=== PATIENT | female | born 1955 | race Caucasian/White ===

== ENCOUNTER 2019-07-08 13:49 | Outpatient (CLI) | payer OTHER, SELFPAY ==
--- NOTE | ~2019-07-08 | DEXA_ITS ---
Bone Density Report Name: Jennifer Mg Age: 64 Sex: Female Ethnicity: White Date of : 1955 Indication: postmenopausal; prior fracture; cancer; Referring Provider: Cristin, Zohaib Call Study: Bone densitometry was performed. Exam Date: July 08, 2019 Accession number: [id number] Bone Density: Region BMD T-score Z-score Classification AP Spine (L1, L2) 1.008 0.3 1.7 Normal Femoral Neck (Left) 0.696 -1.4 0.0 Osteopenia Total Hip (Left) 0.827 -0.9 0.1 Normal Total Hip Bilateral Avg 0.831 -0.9 0.2 Normal Femoral Neck (Right) 0.708 -1.3 0.1 Osteopenia Total Hip (Right) 0.834 -0.9 0.2 Normal World Health Organization criteria for BMD impression classify patients as: Normal (T-score at or above -1.0), Osteopenia (T-score between -1.0 and -2.5), or Osteoporosis (T-score at or below -2.5). 10-year Fracture Risk(1): Major Osteoporotic Fracture 14% Hip Fracture 1.2% Reported Risk Factors: [place] (), Neck BMD=0.696, BMI=23.4, previous fracture (1) FRAX(R) Version 3.08. Fracture probability calculated for an untreated patient. Fracture probability may be lower if the patient has received treatment. Previous Exams: Region Exam Age BMD T-score BMD Change BMD Change Date g/cm2 vs Baseline vs Previous AP Spine(L1, L2) 07/08/2019 64 1.008 0.3 -0.133(-11.6%) -0.133(-11.6%) 06/06/2015 60 1.140 1.5 Total Hip(Left) 07/08/2019 64 0.827 -0.9 -0.191(-18.8%) -0.191(-18.8%) 06/06/2015 60 1.019 0.6 Total Hip(Right) 07/08/2019 64 0.834 -0.9 -0.164(-16.4%) -0.164(-16.4%) 06/06/2015 60 0.997 0.5 *Denotes significance at 95% confidence level, LSC for AP Spine = 0.022 g/cm2, LSC for Total Hip = 0.027 g/cm2 Clinical Information Provided by Patient: Has had a low trauma fracture Has used the following medications: Vitamin D Has the following medical conditions: Cancer Patient maximum height was 60 Menopause Age: 52 No regular weight bearing exercise Onset of menses at age 16 Number of children 1 Impression: The patient has low bone mass, based on the Left Femoral Neck T-score. The patient has an estimated ten-year risk of hip fracture of 1.2% and an estimated ten-year risk of major fracture of 14%, based on the WHO FRAX algorithm. The patient has risk factors, including: previous fracture. The BMD for the AP Spine(L1, L2) decreased, changing by -11.6% since the last DXA exam. The BMD for the Total Hip(Left) decreased, changing b
--- NOTE | ~2019-07-08 | MM_ITS ---
EXAMINATION: MM screening jeremiah BI w nohemy HISTORY: Screening mammogram TECHNIQUE: Craniocaudal and mediolateral oblique 3-D tomosynthesis images were obtained and synthetic 2-D images were generated. CAD analysis was submitted and interpreted. COMPARISON: Comparison to multiple prior studies sequentially, with oldest reviewed study dated 04/2014. BREAST PARENCHYMAL COMPOSITION: The breasts are heterogeneously dense, which may obscure small masses . FINDINGS: There are surgical changes in the right breast consistent with previous lumpectomy. There a re benign bilateral vascular calcifications. There is no evidence of suspicious mass, calcification, or architectural distortion to suggest malignancy in either breast. There has been no suspicious inte rval change. IMPRESSION: 1. No mammographic evidence of malignancy. 2. Recommend routine screening mammography in one year. BI-RADS Category 2: Benign finding(s). Reviewed, dictated and finalized at location D.
== END 2019-07-08 13:50 | disposition home or self-care (01) ==
LOC: ANHIMG 13:52
PROVIDERS: Family Provider Obstetrics & Gynecology; PCP Family Medicine; Visit Provider Family Medicine
DX: M89.9 Disorder of bone, unspecified (principal); Z85.3 Personal history of malignant neoplasm of breast; Z78.0 Asymptomatic menopausal state; M85.852 Other specified disorders of bone density and structure, left thigh; M85.851 Other specified disorders of bone density and structure, right thigh
CPT/HCPCS: 77063; 77067; 77080

== ENCOUNTER 2019-10-07 11:36 | Outpatient (CLI) | payer OTHER, SELFPAY ==
[2019-10-07 12:23] LABS: Alanine Aminotransferase 23 U/L (4-35); Albumin Level 4.4 g/dL (3.5-5.1); Alkaline Phosphatase 132 U/L (38-126); Aspartate Amino Transferase 20 U/L (14-36); Bilirubin,Total 0.2 mg/dL (0.2-1.3); Blood Urea Nitrogen 53 mg/dL (7-17); Calcium 9.5 mg/dL (8.4-10.2); Carbon Dioxide 23 mmol/L (22-30); Chloride 94 mmol/L (98-107); Estimated Glomerular Filt Rate 42; Glucose 194 mg/dL (65-105); Potassium 5.9 mmol/L (3.4-5.0); Sodium 129 mmol/L (137-145)
[2019-10-07 13:27] LABS: Free T4 Free Thyroxine 0.78 ng/mL (0.78-2.19)
== END 2019-10-07 11:37 | disposition home or self-care (01) ==
PROVIDERS: PCP Family Medicine; Visit Provider Family Medicine
DX: E03.9 Hypothyroidism, unspecified (principal); E11.9 Type 2 diabetes mellitus without complications
CPT/HCPCS: 36415; 80053; 83036; 84439; 84443

== ENCOUNTER 2019-10-26 10:40 | Outpatient (CLI) | payer OTHER, SELFPAY ==
[2019-10-26 11:17] LABS: Blood Urea Nitrogen 37 mg/dL (7-17); Calcium 8.9 mg/dL (8.4-10.2); Carbon Dioxide 29 mmol/L (22-30); Chloride 97 mmol/L (98-107); Estimated Glomerular Filt Rate 56; Glucose 203 mg/dL (65-105); Potassium 4.3 mmol/L (3.4-5.0); Sodium 132 mmol/L (137-145)
== END 2019-10-26 10:41 | disposition home or self-care (01) ==
PROVIDERS: PCP Family Medicine
DX: E87.5 Hyperkalemia (principal)
CPT/HCPCS: 36415; 80048

== ENCOUNTER 2019-11-05 10:23 | Outpatient (CLI) | payer OTHER, SELFPAY ==
[2019-11-05 11:30] LABS: Blood Urea Nitrogen 53 mg/dL (7-17); Calcium 9.8 mg/dL (8.4-10.2); Carbon Dioxide 26 mmol/L (22-30); Chloride 95 mmol/L (98-107); Estimated Glomerular Filt Rate 42; Glucose 155 mg/dL (65-105); Potassium 5.2 mmol/L (3.4-5.0); Sodium 131 mmol/L (137-145)
== END 2019-11-05 10:24 | disposition home or self-care (01) ==
PROVIDERS: PCP Family Medicine
DX: K70.30 Alcoholic cirrhosis of liver without ascites (principal)
CPT/HCPCS: 36415; 80048

== ENCOUNTER 2019-11-20 12:14 | Outpatient (CLI) | payer OTHER, SELFPAY ==
[2019-11-20 12:50] LABS: Anion Gap 16.6 mmol/L (7-16); Blood Urea Nitrogen 52 mg/dL (7-17); Calcium 9.9 mg/dL (8.4-10.2); Carbon Dioxide 29 mmol/L (22-30); Chloride 90 mmol/L (98-107); Estimated Glomerular Filt Rate 42; Glucose 149 mg/dL (65-105); Potassium 5.6 mmol/L (3.4-5.0); Sodium 130 mmol/L (137-145)
== END 2019-11-20 12:15 | disposition home or self-care (01) ==
PROVIDERS: PCP Family Medicine
DX: E87.5 Hyperkalemia (principal)
CPT/HCPCS: 36415; 80048

== ENCOUNTER 2019-12-11 12:37 | Outpatient (CLI) | payer OTHER, SELFPAY ==
[2019-12-11 13:18] LABS: Anion Gap 7 mmol/L (8-16); Blood Urea Nitrogen 21 mg/dL (7-17); Calcium 9.2 mg/dL (8.4-10.2); Carbon Dioxide 26 mmol/L (22-30); Chloride 102 mmol/L (98-107); Estimated Glomerular Filt Rate 56; Glucose 114 mg/dL (65-105); Potassium 4.7 mmol/L (3.4-5.0); Sodium 135 mmol/L (137-145)
== END 2019-12-11 12:38 | disposition home or self-care (01) ==
PROVIDERS: PCP Family Medicine; Visit Provider Internal Medicine Gastroenterology
DX: E87.5 Hyperkalemia (principal)
CPT/HCPCS: 36415; 80048

== ENCOUNTER 2019-12-27 17:54 | Emergency (ER) | payer OTHER, SELFPAY ==
--- NOTE | 2019-12-27 18:00 | ED.ALLEREA ---
HPI - Allergic Reaction General Chief complaint: Ear Stated complaint: ear pain Time Seen by Provider: 12/27/19 18:15 Source: patient Mode of arrival: ambulatory Limitations: no limitations History of Present Illness HPI narrative: Jennifer Mg is a 64 yo female with with a PMH of diabetes difficulty sleeping, GERD, arthritis, chronic silent sinus problems who comes with left ear pain, and increased thickness and yellowing of her nasal secretions. She has been using a nasal rinse to try and control symptoms with ear pain is continually gotten worse and the sinus mucus is thick. Left ear pain x3 days Related Data Home Medications Medication Instructions Recorded Confirmed alprazolam 0.5 mg TID PRN 03/17/19 12/27/19 anastrozole [Arimidex] 1 mg PO DAILY 03/17/19 12/27/19 montelukast 10 mg DAILY 03/17/19 12/27/19 sucralfate 100 mg DAILY 03/17/19 12/27/19 tramadol 50 mg PO TID PRN 03/17/19 12/27/19 alendronate 70 mg PO DAILY 12/27/19 12/27/19 canagliflozin [Invokana] 1 mg DAILY 12/27/19 12/27/19 cyclobenzaprine 5 mg TID PRN 12/27/19 12/27/19 meloxicam 15 mg DAILY 12/27/19 12/27/19 ondansetron 4 mg TID PRN 12/27/19 12/27/19 zolpidem 5 mg HS 12/27/19 12/27/19 Allergies Allergy/AdvReac Type Severity Reaction Status Date / Time Nitrate Analogues Allergy Intermediate NITRATES Verified 12/27/19 18:13 morphine Allergy Unknown Other Verified 12/27/19 18:13 simvastatin Allergy Unknown myalgias Verified 12/27/19 18:13 (muscle pain) Sulfa (Sulfonamide Allergy Unknown Rash Verified 12/27/19 18:13 Antibiotics) Review of Systems Review of Systems: Narrative: CONSTITUTIONAL: Denies fever, chills, sweats. EYES: Denies visual changes, redness, discharge. ENT: Denies rhinorrhea, congestion, sore throat, left otalgia. With increased nasal secretions CARDIOVASCULAR: Denies chest pain, palpitations, edema. RESPIRATORY: Denies dyspnea, wheezing, cough GASTROINTESTINAL: Denies abdominal pain, nausea, vomiting, diarrhea. GENITOURINARY: Denies dysuria, hematuria, abnormal discharge SKIN: Denies rash or itching. NEUROLOGIC: Denies numbness, or focal weakness. PSYCHIATRIC: Denies anxiety or depression. REPLACED BY [facility] Past Medical History Medical History Arthritis Diabetes GERD (gastroesophageal reflux disease) Sleep disturbance Family History Family History Other Diabetes mellitus Social History Social History (Updated 12/27/19 @ 18:29 by Pamela Bah CNP) Smoking status: Never smoker Alcohol intake: never Gender identity (if verbalized by the patient): Female Comments At time of signature, I agree with nursing past medical, surgical, social and family history. There is no relevant family history pertinent to the presenting complaint. Exam Narrative: Exam Narrative: GENERAL: This is a well-nourished, well-developed patient, in mild distress. HEAD: normocephalic, atraumatic. EYES: Sclera clear/white. Vision is grossly intact. EARS: External ears normal, auditory canals clear , left canal erythema with mild edema, without drainage, TMs normal without perforation. Hearing grossly intact. NOSE: External nose normal without nasal discharge, nares with redness, no rhinorrhea. THROAT: Mucous membranes moist, posterior pharynx erythema NECK: Neck supple, non-tender CARDIOVASCULAR: Regular rate and rhythm without murmurs, gallops, or rubs. RESPIRATORY: Clear to auscultation. Breath sounds equal bilaterally. No wheezes, rales, or rhonchi. GASTROINTESTINAL: Abdomen soft, non-tender, SKIN: warm, intact with no suspicious lesions or rash, good texture and turgor. NEURO: awake, alert, and oriented to person, place and time. There were no obvious focal neurologic abnormalities. Steady gait EXTREMITIES: Normal range of motion. BACK: Nontender without deformity Course Course Emergency Course: Started on Z-Adal
[2019-12-27 18:17] VITALS: BP 149/82; PULSE 90; RESP 18; TEMP 37.2; O2SAT 100
== END 2019-12-27 18:42 | disposition home or self-care (01) ==
PROVIDERS: Emergency Provider Nurse Practitioner; PCP Family Medicine
DX: H66.002 Acute suppurative otitis media without spontaneous rupture of ear drum, left ear (principal); J32.1 Chronic frontal sinusitis; M19.90 Unspecified osteoarthritis, unspecified site; E11.9 Type 2 diabetes mellitus without complications; K21.9 Gastro-esophageal reflux disease without esophagitis
CPT/HCPCS: 99213; G0463

== ENCOUNTER 2020-01-25 15:58 | Outpatient (CLI) | payer OTHER, SELFPAY ==
[2020-01-25 16:44] LABS: Alanine Aminotransferase 28 U/L (4-35); Albumin Level 4.5 g/dL (3.5-5.1); Alkaline Phosphatase 188 U/L (38-126); Anion Gap 10 mmol/L (8-16); Aspartate Amino Transferase 23 U/L (14-36); Bilirubin,Total 0.4 mg/dL (0.2-1.3); Blood Urea Nitrogen 42 mg/dL (7-17); Calcium 10.1 mg/dL (8.4-10.2); Carbon Dioxide 31 mmol/L (22-30); Chloride 89 mmol/L (98-107); Estimated Glomerular Filt Rate 38; Glucose 321 mg/dL (65-105); Potassium 4.9 mmol/L (3.4-5.0); Sodium 130 mmol/L (137-145)
[2020-01-25 17:06] LABS: Hemoglobin A1C 8.3 % (<5.7)
== END 2020-01-25 15:59 | disposition home or self-care (01) ==
LOC: ANHLAB 16:01
PROVIDERS: PCP Family Medicine; Visit Provider Family Medicine
DX: E11.9 Type 2 diabetes mellitus without complications (principal)
CPT/HCPCS: 36415; 80053; 83036

== ENCOUNTER 2020-03-03 11:46 | Emergency (ER) | payer OTHER, SELFPAY ==
[2020-03-03 12:00] VITALS: BP 123/101; PULSE 95; RESP 16; TEMP 37.2; O2SAT 98
--- NOTE | 2020-03-03 12:29 | ED.URI ---
HPI - URI/Sore Throat General Chief Complaint: Upper Respiratory Infection Stated Complaint: posible sinus infection History of Present Illness HPI Narrative: This is a 65-year-old Y female who presented to the ED today with complaints of a sore throat, headache, runny nose and a cough. According to patient she sees the ENT on a regular basis who is out of town and does not have coverage she also contacted her primary care physician who instructed her to come here to the urgent care. Patient denies any exposure to Covid. She notes that approximately 4 days ago she started experiencing a sore throat with a headache and runny nose with greenish secretions and a nonproductive cough patient does have a history sinus infections and notes this is how it usually presents itself. The patient denies SOB, CP, palpitation, extremity numbness, lightheadedness, dizziness, constipation, diarrhea, chills, or fever. Patient does take Claritin at home and has been taking that for the last couple of days. Nurses notes reviewed it with, and after measurement patient. MD elicited complaint: cough, sore throat, rhinorrhea, nasal congestion and sinus pain Pertinent past history: sinusitis Related Data Home Medications Medication Instructions Recorded Confirmed anastrozole [Arimidex] 1 mg PO DAILY 03/17/19 03/03/20 montelukast 10 mg DAILY 03/17/19 03/03/20 tramadol 50 mg PO TID PRN 03/17/19 03/03/20 alendronate 70 mg PO DAILY 12/27/19 03/03/20 canagliflozin [Invokana] 1 mg DAILY 12/27/19 03/03/20 cyclobenzaprine 5 mg TID PRN 12/27/19 03/03/20 meloxicam 15 mg DAILY 12/27/19 03/03/20 ondansetron 4 mg TID PRN 12/27/19 03/03/20 zolpidem 5 mg HS 12/27/19 03/03/20 esomeprazole magnesium [Nexium] 20 mg PO DAILY 03/03/20 03/03/20 eszopiclone [Lunesta] 2 mg PO HS 03/03/20 03/03/20 fluticasone propionate [Flonase] 1 spray INTRANASAL DAILY 03/03/20 03/03/20 furosemide [Lasix] 40 mg PO DAILY 03/03/20 03/03/20 gabapentin [Neurontin] 300 mg PO DAILY 03/03/20 03/03/20 insulin glargine [Lantus U-100 10 unit SUBCUT DAILY 03/03/20 03/03/20 Insulin] insulin lispro 1 sliding scale dose SUBCUT 03/03/20 03/03/20 USEASDIRECTD multivitamin with minerals 1 tablet PO DAILY 03/03/20 03/03/20 [Hair,Skin and Nails] polyethylene glycol 3350 [Miralax] 17 g PO DAILY 03/03/20 03/03/20 spironolactone 50 mg PO DAILY 03/03/20 03/03/20 Allergies Allergy/AdvReac Type Severity Reaction Status Date / Time Nitrate Analogues Allergy Intermediate NITRATES Verified 03/03/20 12:06 morphine Allergy Unknown Other Verified 03/03/20 12:06 simvastatin Allergy Unknown myalgias Verified 03/03/20 12:06 (muscle pain) Sulfa (Sulfonamide Allergy Unknown Rash Verified 03/03/20 12:06 Antibiotics) Review of Systems Review of Systems: All systems reviewed & are unremarkable except as noted in HPI and below (10 point system review) [facility] Past Medical History Medical History Arthritis Diabetes GERD (gastroesophageal reflux disease) Sleep disturbance Family History Family History Other Diabetes mellitus Social History Social History Smoking status: Never smoker Alcohol intake: never Gender identity (if verbalized by the patient): Female Exam Narrative: Exam Narrative: GENERAL: This is a well-nourished, well-developed patient, in no apparent distress. HEAD: normocephalic, atraumatic. Sinus tenderness EYES: PERRL. Sclera clear/white. Vision is grossly intact. EARS: External ears normal, auditory canals clear and without drainage, TMs normal without perforation. Hearing grossly intact. NOSE: External nose normal with no obvious nasal discharge, nares without redness, with rhinorrhea. THROAT: Mucous membranes moist, posterior pharynx clear. NECK: Neck supple, non-tender without lymphadenopathy, mass
== END 2020-03-03 12:30 | disposition home or self-care (01) ==
PROVIDERS: Emergency Provider Nurse Practitioner; PCP Family Medicine
DX: J11.1 Influenza due to unidentified influenza virus with other respiratory manifestations (principal); M19.90 Unspecified osteoarthritis, unspecified site; E11.9 Type 2 diabetes mellitus without complications; K21.9 Gastro-esophageal reflux disease without esophagitis
CPT/HCPCS: 99213; G0463

== ENCOUNTER 2020-04-25 11:05 | Outpatient (CLI) | payer OTHER, SELFPAY ==
--- NOTE | ~2020-04-25 | CT_ITS ---
EXAMINATION: CT sinus wo con DATE: 04/25/2020 11:47 INDICATION: Chronic sinusitis TECHNIQUE: Computed tomography (CT) of the paranasal sinuses was performed without contrast. Iterativ e reconstruction technique was employed. Exam dose: 292.34 mGy-cm total exam DLP. COMPARISON: 05/14/2016 CT sinuses FINDINGS: Again noted is a nasal septal defect. There is moderate prominence of the inferior nasal tu rbinates and right middle nasal turbinate. The ostiomeatal units are patent. The frontal sinuses are not developed. The ethmoid air cells and sphenoid sinuses are unremarkable. There is mild mucoperiosteal thickening of the maxillary sinuses. The mastoid air cells are normally developed and aerated bilaterally. Middle and inner ear apparatus appear normal bilaterally. IMPRESSION: Nasal septal defect is again noted Mild mucoperiosteal thickening of the maxillary sinuses. Reviewed, dictated and finalized at Location A. Reviewed, dictated and finalized at location B. CIATE SOFTWARE APPLICATION ENGINEER
== END 2020-04-25 11:06 | disposition home or self-care (01) ==
LOC: ANHIMG 11:17
PROVIDERS: PCP Family Medicine
DX: J32.9 Chronic sinusitis, unspecified (principal)
CPT/HCPCS: 70486

== ENCOUNTER 2020-05-04 12:52 | Outpatient (CLI) | payer OTHER, SELFPAY ==
--- NOTE | ~2020-05-04 | XR_ITS ---
EXAMINATION: XR thoracic spine 3V EXAM DATE: 05/04/2020 13:08 INDICATION: No known recent injury provided at this time. Pain of the thoracic spine. TECHNIQUE: Frontal and lateral projections of the thoracic spine as well as lateral swimmers projecti on of the upper thoracic spine for interpretation. Comparison is made to prior examination from 2015. FINDINGS: Mild thoracic spondylosis. The vertebral bodies are aligned in the AP dimension. Vertebral body heights are maintained. Paraspinal soft tissue is unremarkable. Pancreatic calcifications, chron ic pancreatitis. IMPRESSION: Mild thoracic spondylosis. Reviewed, dictated and finalized at location B. ENPLAY WRITER IMPRESSION: Mild thoracic spondylosis.
== END 2020-05-04 12:53 | disposition home or self-care (01) ==
PROVIDERS: PCP Family Medicine; Visit Provider Family Medicine
DX: M47.894 Other spondylosis, thoracic region (principal)
CPT/HCPCS: 72072

== ENCOUNTER 2020-07-28 12:30 | Outpatient (RCR) | payer OTHER, SELFPAY ==
--- NOTE | 2020-05-25 14:48 | PTOPEVAL ---
Thank you for referring Jennifer Mg to [facility] The patient is scheduled to be seen for therapy? ____x/week for ___ weeks. Please review, sign, date and return this plan of care TELLO. I agree with and certify that the following plan of care is medically necessary. Referring Physician Date Attending Provider: Zohaib Amaral, MD *PT Outpatient Evaluation Problem low back pain and right shoulder pain Onset 5 yr Cause no injury Additional Evaluation Detail She has been receiving cortison injections of the shoulder every 3 months. Relief is less with most recent injections. Denies back injections. Subjective Information Pt reports constant mid-back Query Text:As Reported By Patient/ pain with varied intensity and Family right shoulder pain. Reports increased pain of back with prolonged standing and sitting in the car. She has increased pain with lifting task and ADL's. She had a MRI on her back, but her pain stopped. She had a fall 6 wks ago causing increased pain agian. She tripped on a blanket. She landed on the right side and her knees. She is able to preform community walking. She is able to walk [employer] 1x/wk. 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 c/o of a deep bone ache of the right shoulder. Diagnostic Tests X-Rays For This Problem Yes: mild OA thoracic region MRI For This Problem Yes: L4-5 bulging disc Previous Treatments Previous Treatments For This Problem no, treatment for knee Pain Assessment Right Shoulder(s) Reported Pain Level 4 Pain Description Aching,Sharp Pain Frequency Chronic,Continuous Lowest Pain Intensity 3 Greatest Pain Intensity 8 Pain Aggravating Factors ADL's,Exercise/Activity, Lifting,Walking Pain Behaviors None Upper Back Reported Pain Level 5 Pain Description Aching,Burning Pain Frequency Chronic,Continuous Lowest Pain Intensity 2 Greatest Pain Intensity 8 Pain Aggravating Factors Lifting,Sitting,Walking Cervical and Lumb
--- NOTE | 2020-06-03 12:00 | PCPTNOTE ---
Patient called & cancelled scheduled appointment this date due to having another appointment.
--- NOTE | 2020-07-04 12:34 | PCPTNOTE ---
Patient called & cancelled scheduled appointment this date due to not feeling well.
--- NOTE | 2020-07-28 13:18 | PTOPEVAL ---
Thank you for referring Jennifer Mg to [facility].? The patient has been seen for 13 therapy visits from 05/25/20 to 07/28/20 to address shoulder and back pain. She has reached maximal potential with skilled therapy services at this time. She has partially achieved her therapy goals. Will plan to D/C therapy with Jennifer to continue with her home program. Please review, sign, date and return this discharge summary TELLO. I agree with and certify that the following plan of care is medically necessary. Referring Physician Date Attending Provider: Zohaib Amaral, Physical therapy discharge Note Diagnosis low back pain and shoulder pain Onset 5 yr Cause no injury Additional Evaluation Detail She has been receiving injections of the shoulder every 3 months. She purchased a TENS unit and will wear for 3 hour at a time. She has applied it to her shoulders and mid-back region with good relief of pain. 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 She does the cleaning or lifting task. She is able to stir, but not lift objects with cooking. She has limited with repeated activities in the kitchen. Subjective Information She received an injection in Query Text:As Reported By Patient/ her shoulder on Saturday. Family She reports improved right shoulder pain with activties. Denies increased shoulder pain with prolonged sitting. Reports improved shoulder and back pain with ADL's and increased activities. She has increased pain with sitting in the car for > 1 hr or sitting in uncomfortable chair. She is better able to tolerate reaching activities when shopping or performing laundry. She is performing her home program 4-5 times a week. Pain Assessment Right Shoulder(s) Reported Pain Level 2 Pain Description Aching Pain Frequency Chronic Lowest Pain Intensity 2 Greatest Pain Intensity 4 Pain Aggravating Factors ADL's,Exercise/Activity, L
== END 2020-08-01 07:54 | disposition home or self-care (01) ==
LOC: ANHPT 12:30
PROVIDERS: Family Provider Obstetrics & Gynecology; PCP Family Medicine; Visit Provider Family Medicine
DX: M19.011 Primary osteoarthritis, right shoulder (principal); M54.5 Low back pain
CPT/HCPCS: 97014; 97110; 97140; 97163; G0283

== ENCOUNTER 2020-08-31 12:57 | Outpatient (CLI) | payer OTHER, SELFPAY ==
--- NOTE | ~2020-08-31 | MM_ITS ---
EXAMINATION: MM screening jeremiah BI w nohemy HISTORY: Screening mammogram, history of right breast cancer TECHNIQUE: Craniocaudal and mediolateral oblique 3-D tomosynthesis images were obtained and synthetic 2-D images were generated. CAD analysis was submitted and interpreted. COMPARISON: 07/08/2019, 11/04/2017, 05/07/2016 BREAST PARENCHYMAL COMPOSITION: The breasts are heterogeneously dense, which may obscure small masses . FINDINGS: There are stable lumpectomy changes in the upper right breast. There is no evidence of susp icious mass, calcification, or architectural distortion to suggest malignancy in either breast. There has been no suspicious interval change. IMPRESSION: 1. No mammographic evidence of malignancy. 2. Recommend routine screening mammography in one year. BI-RADS Category 2: Benign finding(s). Reviewed, dictated and finalized at location A.
== END 2020-08-31 12:58 | disposition home or self-care (01) ==
LOC: ANHIMG 13:01
PROVIDERS: PCP Family Medicine; Visit Provider Obstetrics & Gynecology
DX: Z12.31 Encounter for screening mammogram for malignant neoplasm of breast (principal)
CPT/HCPCS: 77063; 77067

== ENCOUNTER 2020-11-02 14:04 | Outpatient (CLI) | payer OTHER, SELFPAY ==
[2020-11-02 19:39] LABS: Hemoglobin A1C 8.8 % (<5.7)
== END 2020-11-02 14:05 | disposition home or self-care (01) ==
LOC: ANHLAB 14:07
PROVIDERS: PCP Family Medicine; Visit Provider Podiatrist Foot & Ankle Surgery
DX: E11.9 Type 2 diabetes mellitus without complications (principal)
CPT/HCPCS: 36415; 83036

== ENCOUNTER 2020-11-14 11:00 | Outpatient (RCR) | payer OTHER, SELFPAY ==
--- NOTE | 2020-09-12 11:58 | PTOPEVAL ---
PHYSICAL THERAPY EVALUATION AND PLAN OF CARE Thank you for referring Jennifer Mg to [facility].? The patient is scheduled to be seen for therapy? 2x/week for 4 weeks. Please review, sign, date and return this plan of care TELLO. I agree with and certify that the following plan of care is medically necessary. Referring Physician Date Attending Provider: VICENTE,GWENDOLYN ESCOBAR Neurological History Hx Other Neurological Disorders Yes: raynauds Cardiovascular History Hx Hypertension Yes Respiratory History Hx Respiratory Disorders No Significant History Gastrointestinal History Hx Cirrhosis Yes Hx Gastroesophageal Reflux Disease Yes Hx Pancreatitis Yes Genitourinary History Hx Genitourinary Disorders No Significant History Musculoskeletal History Hx Arthritis Yes: thoracic, knee Hx Fractures Yes: C-1 FX, 2 yrs, femur fracture Hx Joint Replacement Yes: TKR 2016 Hx Orthopedic Surgery Yes: ORIF left femur Hematological History Hx Hematological Disorders No Significant History Endocrine History Hx Diabetes Yes Hx Hypothyroidism Yes HEENT History Hx Sinus Problems Yes Integumentary History Hx Other Skin Disorders Yes: raynauds Reproductive History Hx Post Menopausal Yes Psychosocial History Hx Anxiety Yes Hx Other Psychiatric Disorders Yes: alcohol abuse Pain History Has Past Pain Affected Your Daily Life Yes Effective Methods of Pain Control medication Ineffective Methods of Pain Control heat Anesthesia History Hx Anesthesia Reactions No Significant History Other History Hx Cancer Yes: breast 2014 Hx MRSA Yes: 01/30/2017 Diagnosis left shoulder pain with OA Onset 3 weeks ago Subjective Information Jennifer states that her left Query Text:As Reported By Patient/ shoulder started hurting about Family 3-4 weeks ago. She was initially using heat and massage on the shoulder, but started using ice and that seems to be helping more. Cannot raise arms to do her hair. Self Report Pain Assessment Left Shoulder(s) Reported Pain Level 6 Pain Description Aching Pain Frequency Acute,Continuous Lowest Pain Intensity 4 Greatest Pain Intensity 9 Pain Aggravating Factors Lifting Other Pain Aggravating Factors elevating arms Pain Behaviors Guarding Pain Score Pain Score 6: Self Report Interv
--- NOTE | 2020-09-29 09:58 | PCPTNOTE ---
Patient called & cancelled scheduled appointment this date due to I have better things to do.
--- NOTE | 2020-10-13 11:09 | PTOPEVAL ---
PHYSICAL THERAPY PLAN OF CARE UPDATE AND PROGRESS REPORT Thank you for referring Jennifer Mg to [facility].? The patient is scheduled to be seen for therapy? 1x/week for 4 weeks. Please review, sign, date and return this plan of care TELLO. I agree with and certify that the following plan of care is medically necessary. Referring Physician Date Attending Provider: VICENTE,GWENDOLYN ESCOBAR Self Report Pain Assessment Left Shoulder(s) Reported Pain Level 3 Pain Description Aching Pain Frequency Acute,Continuous Lowest Pain Intensity 2 Greatest Pain Intensity 7 Pain Aggravating Factors Lifting Other Pain Aggravating Factors elevating arms Pain Behaviors Guarding Pain Score Pain Score 3: Self Report Interventions Used Interventions Used By Clinicians Exercise,Ice,Manual Therapy Techniques Pain Relief Interventions Used By Ice Patient Upper Extremity Range of Motion Scapular/ Shoulder Range of Motion Left Shoulder Flexion - Active 160 Shoulder Abduction - Active 150 Shoulder Medial Rotation - Active T12 Query Text:Reach Behind the Back Shoulder Lateral Rotation - Active occiput Query Text:Reach Behind the Head Upper Extremity Muscle Strength Testing Scapular/Shoulder Left Shoulder Flexion Strength 4+ Good + Shoulder Abduction Strength 5 Normal Shoulder Medial Rotation Strength 5 Normal Shoulder Lateral Rotation Strength 5 Normal Muscle Length Testing Muscle Length Testing Latissmus Dorsi Muscle Length (L) Moderate Tightness Upper Trapezius Muscle Length (R) Mild Tightness,(L) Mild Tightness Levaetor Scapulae Muscle Length (R) Mild Tightness,(L) Mild Tightness Shoulder Internal Rotators Muscle Length (R) Mild Tightness,(L) Mild Tightness Teres Major Muscle Length (L) Severe Tightness Pectoralis Major Muscle Length (R) Mild Tightness,(L) Moderate Tightness Posture Posture Sitting Position Posture Evaluation View Lateral Head/C-Spine Posture Forward Head Thoracic Spine Posture Increased Kyphosis Lumbar Spine Posture Flattened Scapula Posture (L) Protracted,(R) Protracted Palpation Assessment Palpation Palpation trigger points and tightness noted to left teres major and serratus anterior General Exercise General Exercises Side Left Exercise Location shoulder Exercise Type Active,Resistive,Stretching Exercise Description -standing triceps stretch Query Text:Record Sets, Reps, overhead - modified to be Resistance, and Position
--- NOTE | 2020-11-09 14:36 | PCPTNOTE ---
Patient called & cancelled scheduled appointment this date. Rescheduled for another day.
--- NOTE | 2020-11-14 11:33 | PTOPEVAL ---
PHYSICAL THERAPY DISCHARGE NOTE Thank you for referring Jennifer Mg to [facility].? Please review, sign, date and return this plan of care TELLO. I agree with and certify that the following plan of care is medically necessary. Referring Physician Date Attending Provider: VICENTE,GWENDOLYN ESCOBAR Discharge Yes Diagnosis left shoulder pain with OA Onset 11 weeks ago Subjective Information States that her shoulder is Query Text:As Reported By Patient/ doing pretty good. She uses Family a massager on the shoulders even if they hurt or not. Self Report Pain Assessment Left Shoulder(s) Reported Pain Level 1 Pain Description Aching Pain Frequency Acute,Continuous Pain Aggravating Factors Lifting Other Pain Aggravating Factors elevating arms Pain Behaviors Guarding Pain Score Pain Score 1: Self Report Additional Pain Score Comments Increased pain in low back Interventions Used Interventions Used By Clinicians Exercise,Ice,Manual Therapy Techniques Pain Relief Interventions Used By Ice Patient Upper Extremity Range of Motion Scapular/ Shoulder Range of Motion Left Shoulder Flexion - Active 160 Shoulder Abduction - Active 150 Shoulder Medial Rotation - Active t10 Query Text:Reach Behind the Back Shoulder Lateral Rotation - Active C3 Query Text:Reach Behind the Head Upper Extremity Muscle Strength Testing Scapular/Shoulder Left Shoulder Flexion Strength 4+ Good + Shoulder Abduction Strength 5 Normal Shoulder Medial Rotation Strength 5 Normal Shoulder Lateral Rotation Strength 5 Normal Muscle Length Testing Muscle Length Testing Latissmus Dorsi Muscle Length (L) Mild Tightness Upper Trapezius Muscle Length (R) Mild Tightness,(L) Mild Tightness Levaetor Scapulae Muscle Length (R) Mild Tightness,(L) Mild Tightness Shoulder Internal Rotators Muscle Length (R) Mild Tightness,(L) Mild Tightness Teres Major Muscle Length (L) Moderate Tightness Pectoralis Major Muscle Length (R) Mild Tightness,(L) Moderate Tightness Palpation Assessment Palpation Palpation tightness of muscles is improving General Exercise General Exercises Side Left Exercise Location shoulder Exercise Type Active,Stretching Exercise Description - seated madeline's shoulder Query Text:Record Sets, Reps, flexion x2min, abduction x2min Resistance, and Position ; standing behind the back
== END 2020-11-29 14:16 | disposition home or self-care (01) ==
LOC: ANHPT 11:00
PROVIDERS: PCP Family Medicine; Visit Provider Physician Assistant
DX: M19.011 Primary osteoarthritis, right shoulder (principal); M54.2 Cervicalgia
CPT/HCPCS: 97014; 97110; 97140; 97162; G0283

== ENCOUNTER 2020-12-16 10:56 | Outpatient (CLI) | payer OTHER, SELFPAY ==
--- NOTE | ~2020-12-16 | XR_ITS ---
XR thoracic spine 3V DATE: 12/16/2020 11:22 INDICATION: Thoracic back pain TECHNIQUE: AP, lateral, swimmer views COMPARISON: 05/04/2020 thoracic spine 12/29/2018 CT abdomen pelvis FINDINGS: Normal alignment of the thoracic spine. Diffuse osteopenia. No scoliosis. No fracture or di slocation or bone destruction is evident. The thoracic pedicles are intact. No paraspinal soft tissue thickening. Multiple pancreatic calcifications consistent with chronic pancreatitis. IMPRESSION: Osteopenia Reviewed, dictated and finalized at location A. IMPRESSION: Osteopenia
== END 2020-12-16 10:57 | disposition home or self-care (01) ==
PROVIDERS: PCP Family Medicine; Visit Provider Anesthesiology Pain Medicine
DX: M47.894 Other spondylosis, thoracic region (principal); M85.88 Other specified disorders of bone density and structure, other site
CPT/HCPCS: 72072

== ENCOUNTER 2021-01-17 11:49 | Emergency (ER) | payer OTHER, SELFPAY ==
[2021-01-17 12:04] VITALS: BP 131/90; PULSE 88; RESP 16; TEMP 36.8; O2SAT 100
--- NOTE | 2021-01-17 12:40 | ED.URI ---
HPI - URI/Sore Throat General Chief Complaint: Upper Respiratory Infection Stated Complaint: Sinus Infection Time Seen by Provider: 01/17/21 12:29 Source: patient and RN notes reviewed Mode of arrival: ambulatory Limitations: no limitations History of Present Illness HPI Narrative: Patient presents today with a 3-day history of frontal sinus headache, postnasal drip, nasal congestion, purulent nasal discharge, sore throat. Denies fever, cough, shortness of breath. He has been taking Claritin-D, Tylenol, saline nasal spray with some relief. Currently rates his headache 5/10. History of chronic sinusitis, diabetes, cirrhosis, pancreatitis, Raynaud's disease. Patient is followed by an ear nose and throat doctor for her chronic sinusitis, but he is currently out of town, so she was told to come to [facility] for further evaluation. States typically when she starts feeling symptoms of an acute sinusitis she is called in antibiotics automatically. MD elicited complaint: sore throat and nasal congestion Related Data Home Medications Medication Instructions Recorded Confirmed alendronate 70 mg PO DAILY 01/17/21 01/17/21 blood sugar diagnostic [IntYuch 01/17/21 01/17/21 Verio test strips] blood-glucose transmitter [Dexcom 01/17/21 01/17/21 G6 Transmitter] canagliflozin [Invokana] 100 mg PO DAILY 01/17/21 01/17/21 celecoxib 200 mg PO DAILY 01/17/21 01/17/21 cyclobenzaprine 5 mg PO PRN PRN 01/17/21 01/17/21 furosemide 20 mg PO DAILY 01/17/21 01/17/21 insulin glargine [Lantus Solostar 3 unit SUBCUT DAILY 01/17/21 01/17/21 U-100 Insulin] insulin lispro [Humalog KwikPen 100 unit SUBCUT DAILY 01/17/21 01/17/21 Insulin] lancets [IntYTouch Delica Plus 01/17/21 01/17/21 Lancet] montelukast 10 mg PO DAILY 01/17/21 01/17/21 pen needle, diabetic [TRUEplus Pen 01/17/21 01/17/21 Needle] spironolactone 50 mg PO DAILY 01/17/21 01/17/21 tramadol 50 mg PO PRN PRN 01/17/21 01/17/21 zolpidem 5 mg PO DAILY 01/17/21 01/17/21 Allergies Allergy/AdvReac Type Severity Reaction Status Date / Time Sulfa (Sulfonamide AdvReac Mild Hives Verified 01/17/21 12:32 Antibiotics) Review of Systems Review of Systems: CONSTITUTIONAL: Denies body aches, fever, chills, or sweats. EYES: Denies visual changes, redness, or discharge. ENT: Denies rhinorrhea, or otalgia.+ Congestion, sore throat, postnasal drip CARDIOVASCULAR: Denies chest pain, palpitations, or edema. RESPIRATORY: Denies cough or dyspnea. GASTROINTESTINAL: Denies abdominal pain, nausea, vomiting, or diarrhea. GENITOURINARY: Denies dysuria or hematuria. SKIN: Denies rash, itching, or wounds. MUSCULOSKELETAL: Denies back pain, joint pain, or myalgia. NEUROLOGIC: Denies numbness, tingling, or weakness.+ Headache PSYCH: Denies depression or anxiety. [facility] Past Medical History Medical History (Updated 01/17/21 @ 12:45 by Martine Perea, [facility], ) Chronic sinusitis Cirrhosis Diabetes Lymphedema Pancreatitis Raynauds disease Comments At time of signature, I have reviewed and agree with nursing past medical, surgical, social and family history unless otherwise noted. Please see nursing chart for further information. There is no relevant family history pertinent to the presenting complaint Exam Narrative: GENERAL: Well-appearing, well-nourished, and in no acute distress. HEAD: Normocephalic, atraumatic. EYES: EOMI. No redness or drainage. Conjunctivae normal. ENT: Mucous membranes pink and moist. Nares congested. Bilateral erythematous and swollen nasal turbinates with purulent discharge.. No rhinorrhea. Bilateral middle ear effusions, right greater than left. No signs of middle ear bacterial infections. Throat normal. Uvula midline. NECK: Normal AROM. Supple. No lymphadenopathy. CHEST: No respiratory distress. Clear to auscultation. HEART: Regular rate and rhythm. No murmur appreciated. Normal peripheral pulses. EXTREMITIES: Normal range of motion. No edema. SKIN: W
== END 2021-01-17 12:46 | disposition home or self-care (01) ==
PROVIDERS: Emergency Provider Nurse Practitioner; PCP Family Medicine
DX: J32.1 Chronic frontal sinusitis (principal); K74.60 Unspecified cirrhosis of liver; E11.9 Type 2 diabetes mellitus without complications; I73.00 Raynaud's syndrome without gangrene
CPT/HCPCS: 99203; G0463

== ENCOUNTER 2021-01-19 11:14 | Outpatient (CLI) | payer OTHER, SELFPAY | END 2021-01-19 11:15 | disposition home or self-care (01) | LOC: ANHLAB 11:17 | PROVIDERS: PCP Family Medicine; Visit Provider Podiatrist Foot & Ankle Surgery | DX: E11.9 Type 2 diabetes mellitus without complications (principal) | CPT/HCPCS: 36415; 83036 ==

== ENCOUNTER 2021-02-28 13:19 | Outpatient (CLI) | payer OTHER, SELFPAY ==
[2021-02-28 13:49] LABS: Hemoglobin A1C 6.4 % (<5.7)
== END 2021-02-28 13:20 | disposition home or self-care (01) ==
PROVIDERS: PCP Family Medicine; Visit Provider Podiatrist Foot & Ankle Surgery
DX: E11.9 Type 2 diabetes mellitus without complications (principal)
CPT/HCPCS: 36415; 83036

== ENCOUNTER 2021-03-28 12:30 | Outpatient (RCR) | payer OTHER, SELFPAY ==
--- NOTE | 2020-12-30 16:12 | PTOPEVAL ---
Thank you for referring Jennifer Mg to [facility].? The patient is scheduled to be seen for therapy? 2 x/week for 4 weeks. Please review, sign, date and return this plan of care TELLO. I agree with and certify that the following plan of care is medically necessary. Referring Physician Date Attending Provider: Bekah Brewer, INSPECTOR STRUCTURAL BONDING Diagnosis thoracic pain Onset 2 wks ago Cause fall Subjective Information She c/o mid-back pain after Query Text:As Reported By Patient/ her fall the other week when Family tripping on an electric cord. She reports inconsistent performance with HEP since last bout of therapy. 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 Pain Assessment Self Report Pain Assessment Bilateral Back Reported Pain Level 6 Pain Description Aching Pain Frequency Chronic Lowest Pain Intensity 5 Greatest Pain Intensity 10 Pain Aggravating Factors ADL's,Exercise/Activity, Lifting,Prolonged Position, Sitting,Walking,Weight Bearing /Standing Cervical and Lumbar ROM Lumbar ROM Lumbar Flexion Active AnkleHands to: Lateral Flexion mid-thigh region*Active Hands to: Lumbar Comments pain with trunk flex and ext 50% trunk rotation 10% trunk ext past midline Lower Extremity Muscle Strength Testing General Lower Extremity Strength Gross Lower Extremity Strength left knee -10-90 dg with hard end feel Muscle Length Testing Muscle Length Testing Piriformis w/Hip Neutral (R) Moderate Tightness,(L) Severe Tightness Left Hamstring Length -40:(90 - 90 Position) Right Hamstring Length -30:(90 - 90 Position) Posture Posture Standing Position Head/C-Spine Posture Forward Head Thoracic Spine Posture Increased Kyphosis Lumbar Spine Posture Increased Lordosis Shoulder Posture (L) Rounded,(R) Rounded,(L) Forward,(R) Forward,(L) Elevated,(R) Elevated Scapula Posture (L) Protracted,(R) Protracted, (L) Tipped,(R) Tipped Arm Posture (L) Internally Rotated,(R) Internally Rotated Pelvis Posture Anteriorly Tilted
--- NOTE | 2021-01-04 11:04 | PCPTNOTE ---
Patient called & cancelled scheduled appointment this date due to tree on power lines.
--- NOTE | 2021-01-12 08:56 | PCPTNOTE ---
Patient called & cancelled scheduled appointment this date due to not feeling well and being up all night.
--- NOTE | 2021-01-30 11:50 | PTOPEVAL ---
Physical Therapy Progress Note Thank you for referring Jennifer Mg to [facility].?Pt has received 6 therapy visits to address her thoracic pain. She has improved pain, motion and ability to perform daily task. She has partially achieved her therapy goals at this time. Will plan to DC treatment for her upper back/thoracic region at this time. Will assess her new order for patti shoulder pain on 01/31/21. Please review, sign, date and return this progress updated therapy treatment plan of care TELLO. I agree with and certify that the following plan of care is medically necessary. Referring Physician Date Attending Provider: Bekah Brewer, STROBOROMA OPERATOR Diagnosis thoracic pain Onset 2 wks ago Cause fall Subjective Information She reports she is performing Query Text:As Reported By Patient/ HEP 5x/ek. Reports improved Family pain at rest and with activities. Improved preformance with ADL's, lifting light objects. She is walking without increased upper back pain. Pain Assessment Bilateral Back Reported Pain Level 3 Pain Description Aching Lowest Pain Intensity 3 Greatest Pain Intensity 7 Pain Aggravating Factors Exercise/Activity,Lifting, Prolonged Position Cervical and Lumbar ROM Lumbar ROM Lumbar Flexion Active Floor:Hands to: Lateral Flexion distal-thigh region:Active Hands to: Lumbar Comments pulling pain with trunk flex 75% trunk rotation 25% trunk ext past midline Cervical and Lumbar Muscle Testing Lumbar Strength Upper Back Extension 3-Fair- Upper Extremity Muscle Strength Testing General Upper Extremity Strength Gross Upper Extremity Strength Comments scapular stability for middle and lower trap: 2/5 with poor movement and body awareness Muscle Length Testing Muscle Length Testing Piriformis w/Hip Neutral (R) Moderate Tightness,(L) Moderate Tightness Left Hamstring Length -30 Query Text:(90 - 90 Position) Right Hamstring Length -30 Query Text:(90 - 90 Position) Palpation Assessment Palpation Palpation no tenderness of thoracic paraspinals mild tenderness of spineous process from T7-T12 region, PT Clinical Summary Pt referred to therapy due to recent fall with increased thoracic pain. She has attended 6 therapy visits from
--- NOTE | 2021-01-31 14:27 | PCPTNOTE ---
Patient called & cancelled scheduled appointment this date due to having been at the hospital with mother all day.
--- NOTE | 2021-02-14 16:05 | PTOPEVAL ---
Thank you for referring Jennifer Mg to [facility] to address her shoulder pain. ? The patient is scheduled to be seen for therapy 2 x/week for 4 weeks. Please review, sign, date and return this plan of care TELLO. I agree with and certify that the following plan of care is medically necessary. Referring Physician Date Attending Provider: Bekah Brewer, BOAT REPAIRER Referring Provider: Zohaib Amaral MD Diagnosis patti shoulder pain. Onset november fall Subjective Information Reports limitations with Query Text:As Reported By Patient/ reaching motions overhead and Family behind her back, lifting and carrying task. Limited with sleeping on shoulders. 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 Her shoulders have been limited for a long time, but the pain and limitation increased after the fall. She uses the massager and TENS unit for her pain. Pain Assessment Left Shoulder(s) Reported Pain Level 6 Pain Description Aching,Sharp,Soreness Pain Frequency Continuous Lowest Pain Intensity 4 Greatest Pain Intensity 8 Pain Aggravating Factors ADL's,Exercise/Activity, Lifting Pain Behaviors Anxious Right Shoulder(s) Reported Pain Level 4 Pain Description Aching,Spasms Pain Frequency Continuous Lowest Pain Intensity 4 Greatest Pain Intensity 8 Pain Aggravating Factors ADL's,Exercise/Activity, Lifting,Procedure or Surgery Pain Behaviors Anxious,Moaning Upper Extremity Range of Motion Scapular/ Shoulder Range of Motion Right Shoulder Flexion - Active 130 Shoulder Extension - Active 48 Shoulder Abduction - Active 100 Shoulder Medial Rotation - Active L1 Query Text:Reach Behind the Back Shoulder Lateral Rotation - Active Occipital Query Text:Reach Behind the Head Scapular/Shoulder Range of Motion Pain,Soft Tissue Restriction Limitations Left Shoulder Flexion - Active 130 Shoulder Extension - Active 48 Shoulder Abduction - Active 95 Shoulder Medial Rotation - Active T11:Reach Behind the Back Shoulder Lateral Rotation - Active top of head:Reach Behind the Head Scapular/Shoulder Range of Motion Pain,Soft Tissue Restriction Limitations Upper Extremity Muscle Strength Testing Gener
--- NOTE | 2021-03-17 11:41 | PTOPEVAL ---
Physical Therapy Progress Note Thank you for referring Jennifer Mg to [facility].? Jennifer has attended 6 visits to address her upper back pain and 9 visits to address her shoulder pain limitations. She has been provided a HEP to address her remaining strength limitations. She has a new order to address her leg pain. Will DC addressing her shoulders at this time. Please review, sign, date and return this discharge summary for her shoulders TELLO. I agree with and certify that the following plan of care is medically necessary. Referring Physician Date Referring Provider: Dr. Zohaib Amaral Diagnosis patti shoulder pain. Onset fall Subjective Information Reports her shoulder pain is Query Text:As Reported By Patient/ better, but always there. Family Reports continued limitations with reaching motions overhead and behind her back, but is slightly better with therapy. She does feel like she needs to work on strengthening. She is not performing her strengthening exercises at home. She reports no changes with tolerance with sleeping on shoulders. 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 She was in the kitchen cooking for multiple hours over the past few days. Pain Assessment Left Shoulder(s) Reported Pain Level 3 Pain Frequency Continuous Lowest Pain Intensity 3 Greatest Pain Intensity 7 Right Shoulder(s) Reported Pain Level 3 Pain Frequency Continuous Lowest Pain Intensity 3 Greatest Pain Intensity 6 Upper Extremity Range of Motion Scapular/ Shoulder Range of Motion Right Shoulder Flexion - Active 145 Shoulder Extension - Active 50 Shoulder Abduction - Active 130 Shoulder Medial Rotation - Active L1:Reach Behind the Back Shoulder Lateral Rotation - Active C3:Reach Behind the Head Scapular/Shoulder Range of Motion Pain,Soft Tissue Restriction Limitations Left Shoulder Flexion - Active 150 Shoulder Extension - Active 48 Shoulder Abduction - Active 150 Shoulder Medial Rotation - Active L1:Reach Behind the Back Shoulder Lateral Rotation - Active back of headReach Behind the Head Scapular/Shoulder Range of Motion Pain,Soft Tissue Restriction Limitations Upper Extremity Muscle Strength Testing Scapular/Shou
--- NOTE | 2021-03-28 14:40 | PTOPEVAL ---
Thank you for referring Jennifer Mg to [facility].? The patient is scheduled to be seen for therapy?1-2 x/week for 4 weeks. Please review, sign, date and return this plan of care TELLO. I agree with and certify that the following plan of care is medically necessary. Referring Physician Date Referring Provider: Dr. Ranjit Arellano Diagnosis leg and knee pain Onset 2018 Additional Evaluation Detail left TKR 12/07, and left femur fracture 06/10 with s/p ORIF Subjective Information She has had left leg pain Query Text:As Reported By Patient/ since her fracture with s/p Family ORIF. Reports left knee is constantly painful. Increased pain with walking, prolonged sitting, steps, squat, prolonged standing. Right knee hurts with moving from gas to break or getting in/out of car, but not consistent. use of ice for pain relief at home. Pain Assessment Right Knee(s) Reported Pain Level 0 Pain Description Sharp Pain Frequency Intermittent Lowest Pain Intensity 0 Greatest Pain Intensity 7 Pain Aggravating Factors Other Pain Aggravating Factors Other Pain Aggravating Factors various leg movement Left Knee(s) Reported Pain Level 6 Pain Description Aching Pain Frequency Chronic,Continuous Lowest Pain Intensity 3 Greatest Pain Intensity 8 Lower Extremity Range of Motion Knee Range of Motion Right Knee Flexion Range of Motion - Active 125 Knee Extension Range of Motion - Active 0 Left Knee Flexion Range of Motion - Active 100 Knee Flexion Range of Motion - Passive 100 Knee Extension Range of Motion - Active -8 Knee Range of Motion Limitations Bony Restriction,Pain Knee Range of Motion Comments hard end feel for knee flex Lower Extremity Muscle Strength Testing General Lower Extremity Strength Gross Lower Extremity Strength patti ankle DF: 5/5 patti knee ext: 5/5, patti knee flex: 4-/5 left hip flex: 3+/5, ext: 3/5, abduction: 3/5 right hip: flex: 4/5, ext: 4-/ 5, abduction: 3/5 Balance Assessment 5 Time Sit to Stand Time in Seconds 15 5 Time Sit to Stand Comments decreased WB on left LE, Query Text:Normative Data: If Greater hyperext of right knee at end Than 15 Seconds, 74% Inc
--- NOTE | 2021-03-31 15:46 | PCPTNOTE ---
This treatment is being continued on visit number [id number]. Please see documentation on both accounts to view progress. Completed interventions, outcomes, and problems have been marked as Inactive to facilitate the copying of the Care plan routine for recurring accounts.
== END 2021-03-30 11:25 | disposition home or self-care (01) ==
LOC: ANHPT 12:30
PROVIDERS: PCP Family Medicine; Visit Provider Nurse Practitioner Adult Health
DX: M47.894 Other spondylosis, thoracic region (principal)
CPT/HCPCS: 97014; 97110; 97140; 97162; G0283

== ENCOUNTER 2021-04-28 12:30 | Outpatient (RCR) | payer OTHER, SELFPAY ==
--- NOTE | 2021-03-31 15:48 | PCPTNOTE ---
The treatment documented on this account is a continuation of the treatment documented on visit number [id number]. Please see documentation on both accounts to view progress. The Plan of Care has been transitioned and updated within the new V#. I have addressed and agree with the discipline specific Problems, Interventions, and Goals for the current certification period. Completed interventions, outcomes, and problems have been marked as Inactive to facilitate the copying of the Care plan routine for recurring accounts.
--- NOTE | 2021-04-10 11:34 | PCPTNOTE ---
Patient called & cancelled scheduled appointment this date per patients request.
--- NOTE | 2021-05-02 13:42 | PCPTNOTE ---
Patient called & cancelled scheduled appointment this date due to taking her mother to the ED.
--- NOTE | 2021-05-16 13:27 | PCPTNOTE ---
Admitting Provider: Dr. Ranjit Arellano MD Attending Provider: Bekah Brewer, SHELLAC POLISHER Patient:Jennifer Mg Date of :1955 Physical Therapy Discharge Note Patient has not returned for any further treatments since 04/28/2021, therefore she will be discharged at this time. She called to cancel her remaining visits due to having surgery. Patient?s initial visit was on 12/30/20 and she had a total of 21 visits to address her upper back, shoulder and knee impairments. The goals have been partially met for the various impairments. She has been provided a HEP to perform. Thank you for referring this patient to [facility]. Please review, sign, date and return this discharge summary TELLO. I have been updated about the patient's current status and I agree with discharge from the above service at this time. Referring Physician Date
== END 2021-06-27 12:44 | disposition home or self-care (01) ==
LOC: ANHPT 12:30
PROVIDERS: PCP Family Medicine; Visit Provider Nurse Practitioner Adult Health
DX: M47.894 Other spondylosis, thoracic region (principal); M25.511 Pain in right shoulder; M25.512 Pain in left shoulder; M25.561 Pain in right knee; M25.562 Pain in left knee; Z96.652 Presence of left artificial knee joint
CPT/HCPCS: 97110

== ENCOUNTER 2021-08-10 11:00 | Outpatient (RCR) | payer OTHER, SELFPAY ==
--- NOTE | 2021-07-20 14:57 | PTOPEVAL ---
PHYSICAL THERAPY EVALUATION AND PLAN OF CARE 07-20-21 Thank you for referring Jennifer Mg to [facility] for the diagnosis of R UE lymphedema. Jennifer is scheduled to be seen for therapy? 2 x/week for 3 weeks. Please review, sign, date and return this plan of care TELLO. I agree with and certify that the following plan of care is medically necessary. Referring Physician Date Attending Provider: Zohaib Amaral MD Past Medical History Source of Past Medical History Recalled from Previous Visit, Confirmed with Patient/Family Neurological History Hx Other Neurological Disorders Yes: raynauds- fingers and feet Cardiovascular History Hx Cardiac Disorders No Significant History Respiratory History Hx Other Respiratory Disorders Yes: sinus and seasonal allergies Gastrointestinal History Hx Pancreatitis Yes Genitourinary History Hx Genitourinary Disorders No Significant History Musculoskeletal History Hx Arthritis Yes: everywhere--shoulders, back, feet, knees, neck, hands Hx Back Pain Yes Hx Joint Replacement Yes: L TKR Hx Orthopedic Surgery Yes: C3 fracture with ORIF;R bunion surgery May 2021 Hx Other Musculoskeletal Disorders Yes: femur fracture with ORIF after TKR Hematological History Hx Hematological Disorders No Significant History Endocrine History Hx Diabetes Yes: meds- have implanted monitor HEENT History Hx Tonsillectomy Yes Hx Sinus Problems Yes Integumentary History Hx Skin Disorders No Significant History Reproductive History Hx Post Menopausal Yes Psychosocial History Hx Psychiatric Disorders No Significant History Pain History Has Past Pain Affected Your Daily Life Yes Anesthesia History Hx Anesthesia Reactions No Significant History Other History Hx MRSA Yes: 01/30/17 Hx Other Medical Conditions Yes: cirrhosis liver Evaluation Information Problem Diagnosis R UE lymphedema Onset June 20, 2021 Prior Level of Function Activity Level (Last 3 Months) Occupation retired/disabled Hand Dominance Right Indoor/Home Mobility Independent Functional Cognition (Planning, Shopping Independent , Taking Medications) Home Setting Living Situation Alone Support Available Hired Assistance Mobility Assistive Devices (Used Last 3 None Months) Comments Additional Prior Level of Function have assist at home 3x/wk, Comments with vaccuming, laundry, wash
--- NOTE | 2021-08-10 11:41 | PTOPEVAL ---
PHYSICAL THERAPY DISCHARGE 08-10-21 Refer to the clinical summary below, for her status today, compared to the initial evaluation. The goals were achieved, except the anterior forearm still has slight fibrotic tissue. Discharge PT services. Thank you for referring Jennifer Mg to [facility].? Please review, sign, date and return this discharge TELLO. I agree with and certify that the following plan of care is medically necessary. Referring Physician Date Attending Provider: Zohaib Amaral, Subjective Information Jennifer reports: arm is better- Query Text:As Reported By Patient/ -not puffing up as quickly Family when she takes off her compression sleeve; is using the home pump daily; has ordered the velcro sleeve and it will be here in about 5 days; Pain Assessment Self Report Self Report Pain Level 0 Pain Score Pain Score 0: Self Report Additional Pain Score Comments taking aleve for foot/toe pain , may be helping a little for arm too; arm does not hurt when wake up in the morning; Skin Inspection Location Right Upper Extremity Tissue Texture Firm Lymphedema Stage II Skin Inspection Comment R UE with good skin color, slight fibrotic tissue over proximal anterior forearm education: used trial velcro garment and educated/demo to pt on how to apply, adjust straps and can wear to sleep; reinforced self MLD, continue use of home compression pump daily; she voiced understanding and did not have any questions; UE Lymphedema Side Right Mid-Proximal Third Finger (cm) 6.4 Palm (cm) 18.6 Wrist Crease (cm) 15.5 4 cm From Wrist (cm) 17.4 8 cm From Wrist (cm) 19.8 12 cm From Wrist (cm) 23 16 cm From Wrist (cm) 24.8 20 cm From Wrist (cm) 25 24 cm From Wrist (cm) 25.2 28 cm From Wrist (cm) 28 32 cm From Wrist (cm) 27.4 36 cm From Wrist (cm) 32.5 40 cm From Wrist (cm) 35.5 Total Upper Extremity Circumferential Right UE: 299.1 cm Measurement (cm) Additional Upper Extremity Measurements decreased by 19.1 cm compared Comments to the initial
== END 2021-08-10 16:22 | disposition home or self-care (01) ==
LOC: ANHPT 11:00
PROVIDERS: PCP Family Medicine; Visit Provider Family Medicine
DX: I89.0 Lymphedema, not elsewhere classified (principal)
CPT/HCPCS: 97140; 97161

== ENCOUNTER 2021-10-19 11:47 | Emergency (ER) | payer OTHER, SELFPAY ==
[2021-10-19 11:56] VITALS: BP 169/88; PULSE 18; RESP 18; TEMP 36.6; O2SAT 99
--- NOTE | 2021-10-19 12:01 | ED.ANIMALBIT ---
HPI - Animal Bite General Chief Complaint: Animal Bite Stated Complaint: Dog Bite Time Seen by Provider: 10/19/21 12:01 Source: patient Mode of arrival: ambulatory Limitations: no limitations History of Present Illness HPI narrative: 66 yo F presents with c/o clear fluid draining from R arm for several weeks following a dog bite 3 to 4 wks ago. Hx of lymphedema to R arm due to breast CA. Still has bruising and scabbing. States that she has slow wound healing due to lymphedema and DM. BS have been uncontrol. Not concerns for infection. States when she wears compression sleeve an area where she had dog bite fills up with clear fluid and is painful. Has not called PCP for appt. All systems reviewed and negative except as noted above. Related Data Home Medications Medication Instructions Recorded Confirmed alendronate 70 mg tablet 1 tablet PO DIRECTED 10/19/21 10/19/21 blood-glucose sensor ([employer] G6 10/19/21 10/19/21 Sensor device) blood-glucose transmitter ([employer] 10/19/21 10/19/21 G6 Transmitter device) canagliflozin 100 mg tablet tablet 10/19/21 (Invokana) celecoxib 200 mg capsule cap 10/19/21 cyclobenzaprine 5 mg tablet tablet 10/19/21 furosemide 20 mg tablet tablet 10/19/21 insulin lispro 100 unit/mL ea subcut 10/19/21 subcutaneous pen ondansetron 4 mg disintegrating tablet 10/19/21 tablet tramadol 50 mg tablet tablet 10/19/21 zolpidem 5 mg tablet tablet 10/19/21 Allergies Allergy/AdvReac Type Severity Reaction Status Date / Time Sulfa (Sulfonamide AdvReac Mild Hives Verified 10/19/21 11:52 Antibiotics) Review of Systems Review of Systems: CONSTITUTIONAL: Denies fever, chills, or sweats. EYES: Denies visual changes, redness, or discharge. ENT: Denies rhinorrhea, congestion, sore throat, or otalgia. CARDIOVASCULAR: Denies chest pain, palpitations, or edema. RESPIRATORY: Denies cough or dyspnea. GASTROINTESTINAL: Denies abdominal pain, nausea, vomiting, or diarrhea. GENITOURINARY: Denies dysuria or hematuria. SKIN: Denies rash or itching. Reports clear fluid draining from right forearm where patient had dog bite. MUSCULOSKELETAL: Denies back pain, joint pain, or myalgia. NEUROLOGIC: Denies headache, numbness, or weakness. PSYCHIATRIC: Denies anxiety or depression. All other systems reviewed are negative, except as documented in HPI. [facility] Past Medical History Medical History (Updated 10/19/21 @ 12:10 by Malina Valle NP) Chronic sinusitis Cirrhosis Diabetes Lymphedema Pancreatitis Raynauds disease Comments At time of signature, agree with nursing past medical, surgical, social and family history. There is no relevant family history pertinent to the presenting complaint. Exam Narrative: GENERAL: This is a well-nourished, well-developed patient, in no apparent distress. HEAD: normocephalic, atraumatic. EYES: PERRL. Sclera clear/white. Vision is grossly intact. EARS: External ears normal NOSE: External nose normal NECK: Neck supple, non-tender without lymphadenopathy, masses or thyromegaly. CARDIOVASCULAR: Regular rate and rhythm without murmurs, gallops, or rubs. RESPIRATORY: Clear to auscultation. Breath sounds equal bilaterally. No wheezes, rales, or rhonchi. SKIN: warm, Dry, intact with no suspicious lesions or rash, good texture and turgor. Bruising and scabbing to right distal forearm from dog bite. Small puncture wound with scant clear fluid draining. No erythema or warmth concerning for infection. NEURO: awake, alert, and oriented to person, place and time. There were no obvious focal neurologic abnormalities. EXTREMITIES: No joint tenderness, effusion, or edema noted. Course Course Level of Care: Express Care Visit Vital Signs Vital signs: Vital Signs Temperature 36.6 C 10/19/21 11:56 Pulse Rate 18 L 10/19/21 11:56 Respiratory Rate 18 10/19/21 11:56 Blood Pressure 169/88 H 10/19/21 11:56 Pulse Oximetry 99 10/19/21 11:56 Oxyge
== END 2021-10-19 12:12 | disposition home or self-care (01) ==
PROVIDERS: Emergency Provider Nurse Practitioner Family; PCP Family Medicine
DX: S51.851A Open bite of right forearm, initial encounter (principal); W54.0XXA Bitten by dog, initial encounter; E11.9 Type 2 diabetes mellitus without complications; I73.00 Raynaud's syndrome without gangrene; K74.60 Unspecified cirrhosis of liver; Z85.3 Personal history of malignant neoplasm of breast
CPT/HCPCS: 99212; G0463

== ENCOUNTER 2021-10-20 14:36 | Emergency (ER) | payer OTHER, SELFPAY ==
[2021-10-20 14:51] VITALS: BP 165/56; PULSE 108; RESP 16; TEMP 36.2; O2SAT 98
[2021-10-20 20:24] LABS: Basophils Percent Auto 0.3 % (0.2-1.2); Eosinophils Absolute Auto 0.1 K/mm3 (0-0.3); Eosinophils Percent Auto 0.6 % (0-4.4); Hematocrit 38.5 % (37.0-47.0); Immature Granulocyte Absolute 0.04 K/mm3 (0.00-0.031); Immature Granulocyte Percent A 0.4 % (0-0.5); Lymphocytes Absolute Auto 0.99 K/mm3 (0.9-3.2); Lymphocytes Percent Auto 9.2 % (18.3-44.2); Mean Corpuscular HGB Conc 33.8 g/dl (32-36); Mean Corpuscular Hemoglobin 31.9 pg (26-34); Mean Corpuscular Volume 94.4 fl (80-100); Mean Platelet Volume 8.5 fl (7.4-10.4); Monocytes Absolute Auto 0.8 K/mm3 (0.1-0.6); Monocytes Percent Auto 7.6 % (2.6-8.5); Neutrophils Absolute Auto 8.8 K/mm3 (1.3-6.7); Neutrophils Percent Auto 81.9 % (45.5-73.1); Platelet Count Result 278 k/mm3 (150-375); Red Blood Count 4.08 M/mm3 (4.2-5.4); Red Cell Distribution Width 14.1 % (11.5-14.5); White Blood Count 10.7 K/mm3 (4.5-10.0)
[2021-10-20 20:34] LABS: Anion Gap 6 mmol/L (8-16); Blood Urea Nitrogen 23 mg/dL (7-17); Calcium 9.1 mg/dL (8.4-10.2); Carbon Dioxide 31 mmol/L (22-30); Chloride 93 mmol/L (98-107); Estimated CRCL calculation 42 ml/min; Estimated Glomerular Filt Rate 45; Glucose 157 mg/dL (65-110); Potassium 4.2 mmol/L (3.4-5.0); Sodium 130 mmol/L (137-145)
--- NOTE | 2021-10-20 21:23 | ED.SKABFB ---
HPI - Skin/Abscess/Foreign Bdy General Chief complaint: Skin/Abscess/Foreign Body Stated complaint: bite to wrist Time Seen by Provider: 10/20/21 19:08 History of Present Illness HPI narrative: Patient is a 66-year-old female who presents ER with concerns for infection to her right forearm. She was bit by dog 1 month ago. It was a pitbull of her friends. It was fully vaccinated. It has since been put down because it was old and that the prosthodontist/owner. Patient reports that she had been healing well but she was having some oozing of clear fluid up until yesterday. No fevers or chills or sweats. After the fluid stopped draining yesterday she started developing redness and discomfort of her forearm. No fevers or chills or sweats. No numbness or tingling to the affected extremity. Patient also has history of lymphedema to the affected extremity from previous breast cancer diagnosis and lymph node dissection. Has never had thick purulent drainage. Noticed some redness to her forearm as well. Because she is diabetic she became concerned. Related Data Home Medications Medication Instructions Recorded Confirmed anastrozole 1 mg tablet (Arimidex) 1 mg PO DAILY 03/17/19 03/03/20 montelukast 10 mg tablet 10 mg DAILY 03/17/19 03/03/20 tramadol 50 mg tablet 50 mg PO TID PRN Pain, Moderate 03/17/19 03/03/20 alendronate 70 mg tablet 70 mg PO DAILY 12/27/19 03/03/20 canagliflozin 100 mg tablet 1 mg DAILY 12/27/19 03/03/20 (Invokana) cyclobenzaprine 5 mg tablet 5 mg TID PRN Muscle Pain 12/27/19 03/03/20 meloxicam 15 mg tablet 15 mg DAILY 12/27/19 03/03/20 ondansetron 4 mg disintegrating 4 mg TID PRN Nausea 12/27/19 03/03/20 tablet zolpidem 5 mg tablet 5 mg HS 12/27/19 03/03/20 esomeprazole magnesium 20 mg 20 mg PO DAILY 03/03/20 03/03/20 capsule,delayed release (Nexium) eszopiclone 2 mg tablet (Lunesta) 2 mg PO HS 03/03/20 03/03/20 fluticasone propionate 50 1 spray intranasal DAILY 03/03/20 03/03/20 mcg/actuation nasal spray,suspension furosemide 40 mg tablet (Lasix) 40 mg PO DAILY 03/03/20 03/03/20 gabapentin 300 mg capsule 300 mg PO DAILY 03/03/20 03/03/20 (Neurontin) insulin glargine 100 unit/mL 10 unit subcut DAILY 03/03/20 03/03/20 subcutaneous cartridge insulin lispro 100 unit/mL 1 sliding scale dose subcut 03/03/20 03/03/20 subcutaneous solution USEASDIRECTD multivitamin with minerals 1 tablet PO DAILY 03/03/20 03/03/20 (Hair,Skin and Nails tablet) polyethylene glycol 3350 17 gram 17 g PO DAILY 03/03/20 03/03/20 oral powder packet (Miralax) spironolactone 50 mg tablet 50 mg PO DAILY 03/03/20 03/03/20 alendronate 70 mg tablet 70 mg PO DAILY 01/17/21 01/17/21 blood sugar diagnostic ([facility] 01/17/21 01/17/21 Verio test strips) blood-glucose transmitter ([facility] 01/17/21 01/17/21 G6 Transmitter device) canagliflozin 100 mg tablet 100 mg PO DAILY 01/17/21 01/17/21 (Invokana) celecoxib 200 mg capsule 200 mg PO DAILY 01/17/21 01/17/21 cyclobenzaprine 5 mg tablet 5 mg PO PRN PRN Muscle Pain 01/17/21 01/17/21 furosemide 20 mg tablet 20 mg PO DAILY 01/17/21 01/17/21 insulin glargine 100 unit/mL (3 3 unit subcut DAILY 01/17/21 01/17/21 mL) subcutaneous pen (Lantus Solostar U-100 Insulin) insulin lispro 100 unit/mL 100 unit subcut DAILY 01/17/21 01/17/21 subcutaneous pen (Humalog KwikPen (U-100) Insulin) lancets 33 gauge ([facility] Delica 01/17/21 01/17/21 Plus Lancet) montelukast 10 mg tablet 10 mg PO DAILY 01/17/21 01/17/21 pen needle, diabetic 31 gauge x 01/17/21 01/17/2104/25 (TRUEplus Pen Needle) spironolactone 50 mg tablet 50 mg PO DAILY 01/17/21 01/17/21 tramadol 50 mg tablet 50 mg PO PRN PRN Pain 01/17/21 01/17/21 zolpidem 5 mg tablet 5 mg PO DAILY 01/17/21 01/17/21 alendronate 70 mg tablet 1 tablet PO DIRECTED 10/19/21 10/19/21 blood-glucose sensor ([facility] G6 10/19/21 10/19/21 Sensor device) blood-glucose transmitter ([facility] 10/19/21 10/19/21 G6 Transmitter device) canagliflozin 100 m
[2021-10-20] MEDS: CEFUROXIME AXETIL 250 MG TABLET 500 MG PO (21:26)
== END 2021-10-20 22:08 | disposition home or self-care (01) ==
PROVIDERS: Emergency Provider Emergency Medicine; PCP Family Medicine
DX: L03.113 Cellulitis of right upper limb (principal); E11.9 Type 2 diabetes mellitus without complications; Z79.4 Long term (current) use of insulin; W54.0XXA Bitten by dog, initial encounter
CPT/HCPCS: 36415; 80048; 85025; 87070; 87147; 87186; 87205; 99283; A9270

== ENCOUNTER 2021-11-17 12:30 | Outpatient (RCR) | payer OTHER, SELFPAY ==
--- NOTE | 2021-11-07 10:21 | OTOPEVAL ---
OCCUPATIONAL THERAPY INITIAL EVALUATION REPORT 11/07/21 Jennifer is a 66 year-old, right handed female who is referred to outpatient OT s/p dog bite to her radial forearm. Her biggest complaints are that she frequently drops items and a residual lump in this area. She has been instructed in strengthening HEP has well as issued gentle compression wrap for the forearm. Plan to have her follow up in 10 days to assess her progress with these interventions. Thank you for referring Jennifer Mg to [facility].? The patient is scheduled to be seen for therapy? 1x/week for 2-3 weeks. Please review, sign, date and return this plan of care TELLO. I agree with and certify that the following plan of care is medically necessary. Referring Physician Date Referring Provider: Aron Spears MD *OT Outpatient Evaluation Start: 11/07/21 09:22 Neurological History Hx Other Neurological Disorders Yes: raynauds- fingers and feet Cardiovascular History Hx Other Cardiac Disorders Yes: LYMPHEDEMA Respiratory History Hx COVID-19 Yes Gastrointestinal History Hx Gastroesophageal Reflux Disease Yes Hx Pancreatitis Yes Genitourinary History Hx Genitourinary Disorders No Significant History Musculoskeletal History Hx Arthritis Yes: everywhere--shoulders, back, feet, knees, neck, hands Hx Joint Replacement Yes: L TKR Hx Orthopedic Surgery Yes: C3 fracture with ORIF;R bunion surgery May 2021 Hematological History Hx Hematological Disorders No Significant History HEENT History Hx Tonsillectomy Yes Hx Sinus Problems Yes Integumentary History Hx Skin Disorders No Significant History Reproductive History Hx Post Menopausal Yes Psychosocial History Hx Psychiatric Disorders No Significant History Pain History Has Past Pain Affected Your Daily Life Yes Anesthesia History Hx Anesthesia Reactions No Significant History Other History Hx Other Medical Conditions Yes: cirrhosis liver Evaluation Information Problem Additional Evaluation Detail Hx of dog bite to right radial forearm x6 weeks ago, no infection Subjective Information Patient presents with a small Query Text:As Reported By Patient/ nodule on the radial forearm Family where the dog bite occurred. She is reporting no pain. Sometimes it's tender when she bumps it. She reports a functional decline with dropping everything . Prior Level of Function Activity Level (Last 3 Months) Hand Dominance Right Activity of Daily Living Ability Independent Pain Assessment Timing of Pain Assessment Timing of Pain Assessment
--- NOTE | 2021-11-17 13:07 | OTOPEVAL ---
OCCUPATIONAL THERAPY RE-EVALUATION AND DISCHARGE NOTE 11/17/21 Jennifer is a 66 year-old, right handed female who is referred to outpatient OT s/p dog bite to her radial forearm. Her biggest complaints are that she frequently drops items and a residual lump in this area. She has been instructed in strengthening HEP has well as issued gentle compression wrap for the forearm. At this time her strength has improved and she reports less instances of dropping items. She has less swelling in the forearm, but continues to have a small nodule. Recommend that she continue her HEP of strengthening and compression. No further skilled OT indicated at this time. Thank you for referring Jennifer Mg to [facility].? Please review, sign, date and return this D/C Note TELLO. I agree with and certify that the following plan of care is medically necessary. Referring Physician Date Referring Provider: Aron Spears MD Evaluation Information Additional Evaluation Detail Hx of dog bite to right radial forearm x6 weeks ago, no infection Subjective Information Patient presents with a small Query Text:As Reported By Patient/ nodule on the radial forearm Family where the dog bite occurred. She is reporting no pain. She states that since working on the putty HEP she has not been dropping items as frequently. States she feels like her arm is getting better. Pain Assessment Timing of Pain Assessment Timing of Pain Assessment Re-assessment Pain Scale Pain Scale Used Numeric (1 - 10) Self Report Pain Assessment Right Wrist(s) Reported Pain Level 2 Pain Description Soreness Pain Score Pain Score 2: Self Report Interventions Used Interventions Used By Clinicians Education Other Alleviating Interventions Compression wrap. Upper Extremity Range of Motion General Upper Extremity Range of Motion Reason Not Measured WNL/Right Upper Extremity Muscle Strength Testing Wrist Strength Bilateral Wrist Flexion Strength 4+ Good + Wrist Extension Strength 4+ Good + Hand Billing Typist/Pinch Strength Assessment Hand Right Billing Typist Strength (lbs) 45 Lateral Pinch Strength (lbs) 8.33 Palmar Pinch Strength (lbs) 4.33 Hand Billing Typist/Pinch Strength Comments Billing Typist improved from 41 lbs. No changes in pinches. Palpation Assessment Palpation Palpation Nodule on right radial forearm that is not tender to the touch. No redness/signs of infection. The fluid filled nodule has reduced in size, measuring 18.5 cm circumferentially around the forearm at this
== END 2021-11-20 11:41 | disposition home or self-care (01) ==
LOC: ANHOT 12:30
PROVIDERS: PCP Family Medicine; Visit Provider Plastic Surgery
DX: S50.871D Other superficial bite of right forearm, subsequent encounter (principal); W54.0XXA Bitten by dog, initial encounter
CPT/HCPCS: 97110; 97165

== ENCOUNTER 2021-11-20 13:11 | Outpatient (CLI) | payer OTHER, SELFPAY ==
--- NOTE | ~2021-11-20 | MMUS_ITS ---
EXAMINATION: MM diagnostic jeremiah BI w nohemy, US breast RT complete HISTORY: Previous right lumpectomy for breast cancer. Palpable right breast lump. TECHNIQUE: Additional 3-D tomosynthesis images of the breasts were performed and synthetic 2-D images were generated. CAD analysis was submitted and interpreted. High resolution complete right breast ul trasound was performed. COMPARISON: Comparison to multiple prior studies sequentially, with oldest reviewed study dated 11/16. BREAST PARENCHYMAL COMPOSITION: Breast composed of scattered areas of fibroglandular density FINDINGS: MAMMOGRAPHIC FINDINGS: The breasts are stable. No new masses, calcifications or architectural distortion in either breast to suggest malignancy. ULTRASOUND: Complete US of all 4 quadrants of the right breast and retroareolar region was reviewed. Normal heter ogeneous echotexture without focal solid or cystic mass. There is shadowing in the area of previous s urgical scar. IMPRESSION: 1. No evidence for malignancy in either breast. 2. Routine yearly screening mammogram and regular clinical breast examination are recommended. BI-RADS Category 1: Negative Reviewed, dictated and finalized at location A. IMPRESSION: 1. No evidence for malignancy in either breast. 2. Routine yearly screening mammogram and regular clinical breast examination a re recommended. BI-RADS Category 1: Negative
== END 2021-11-20 13:12 | disposition home or self-care (01) ==
LOC: ANHIMG 13:13
PROVIDERS: PCP Family Medicine; Visit Provider Nurse Practitioner
DX: Z78.0 Asymptomatic menopausal state (principal); N63.10 Unspecified lump in the right breast, unspecified quadrant
CPT/HCPCS: 76641; 77062; 77066; G0279

== ENCOUNTER 2022-01-24 15:19 | Emergency (ER) | payer OTHER, SELFPAY ==
--- NOTE | 2022-01-24 15:21 | ED.URI ---
HPI - URI/Sore Throat General Chief Complaint: Upper Respiratory Infection Stated Complaint: uri Time Seen by Provider: 01/24/22 15:40 Source: patient and RN notes reviewed Mode of arrival: ambulatory Limitations: no limitations History of Present Illness HPI Narrative: 66-year-old female 3 of chronic sinusitis presents with concern for sinus infection. She reports she has had 5-day history of sinus congestion, pressure, pain, drainage. She reports she has tried [id number] remedies without relief. She reports she normally sees her ENT, but he is not available. MD elicited complaint: cough and sore throat Related Data Home Medications Medication Instructions Recorded Confirmed alendronate 70 mg tablet 70 mg PO DAILY 01/24/22 01/24/22 canagliflozin 100 mg tablet 100 mg PO DAILY 01/24/22 01/24/22 (Invokana) celecoxib 200 mg capsule 200 mg PO DAILY 01/24/22 01/24/22 cyclobenzaprine 5 mg tablet 5 mg PO DAILY 01/24/22 01/24/22 furosemide 20 mg tablet 20 mg PO DAILY 01/24/22 01/24/22 hydrocortisone 2.5 % topical cream 2.5 applic topical DAILY 01/24/22 01/24/22 with perineal applicator insulin glargine 100 unit/mL (3 100 unit subcut DAILY 01/24/22 01/24/22 mL) subcutaneous pen (Lantus Solostar U-100 Insulin) insulin lispro 100 unit/mL 100 sliding scale dose subcut DAILY 01/24/22 01/24/22 subcutaneous pen losartan 25 mg tablet 25 mg PO DAILY 01/24/22 01/24/22 montelukast 10 mg tablet 10 mg PO DAILY 01/24/22 01/24/22 ondansetron 4 mg disintegrating 4 mg PO DAILY 01/24/22 01/24/22 tablet spironolactone 50 mg tablet 50 mg PO DAILY 01/24/22 01/24/22 tramadol 50 mg tablet 50 mg PO DAILY 01/24/22 01/24/22 zolpidem 5 mg tablet 5 mg PO DAILY 01/24/22 01/24/22 Allergies Allergy/AdvReac Type Severity Reaction Status Date / Time Nitrate Analogues Allergy Intermediate NITRATES Verified 01/24/22 15:29 morphine Allergy Unknown Other Verified 01/24/22 15:29 simvastatin Allergy Unknown myalgias Verified 01/24/22 15:29 (muscle pain) Sulfa (Sulfonamide AdvReac Mild Hives Verified 01/24/22 15:29 Antibiotics) Review of Systems Review of Systems: CONSTITUTIONAL: Denies malaise, chills, sweats, or fever. EYES: Denies visual changes, redness, or discharge. ENT: Reports rhinorrhea, congestion, sinus pain. Denies otalgia and sore throat. CARDIOVASCULAR: Denies chest pain, palpitations, or edema. RESPIRATORY: Denies cough. Denies dyspnea. GASTROINTESTINAL: Denies abdominal pain, nausea, vomiting, diarrhea SKIN: Denies rash or itching. MUSCULOSKELETAL: Denies myalgia. NEUROLOGIC: Denies headache. All systems reviewed & are unremarkable except as noted in HPI and below PMFSH Past Medical History Medical History (Updated 01/24/22 @ 15:47 by She Simmons NP) Arthritis Chronic sinusitis Cirrhosis Diabetes GERD (gastroesophageal reflux disease) Lymphedema Pancreatitis Raynauds disease Sleep disturbance Family History Family History (System 10/19/21 @ 15:41 by Gemma Trevino) Other Diabetes mellitus Social History Social History (System 10/19/21 @ 15:41 by Gemma Trevino) Smoking status: Never smoker Alcohol intake: never Gender identity (if verbalized by the patient): Female Comments At time of signature, agree with nursing past medical, surgical, social and family history. There is no relevant family history pertinent to the presenting complaint Exam Narrative: GENERAL: Nontoxic appearing and in no acute distress. HEAD: Normocephalic EYES: PERRLA, conjunctivae clear ENT: Nares clear, turbinates edematous and erythematous, clear discharge green, sinus tenderness Mucous membranes moist. TM pearly fletcher with dull light reflex bilaterally; no tragal tenderness. Oropharynx not erythematous without lesions. Tonsils not enlarged and without exudate, no drooling, no hoarseness, no trismus, uvula midline. NECK: Supple. No lymphadenopathy CHEST: Clear to auscultation, breath sounds equal.
[2022-01-24 15:28] VITALS: BP 163/98; PULSE 83; RESP 20; TEMP 36.7
[2022-01-24 15:35] VITALS: BP 163/98; PULSE 83; RESP 20; TEMP 36.7
== END 2022-01-24 15:51 | disposition home or self-care (01) ==
PROVIDERS: Emergency Provider Nurse Practitioner; PCP Family Medicine
DX: J32.9 Chronic sinusitis, unspecified (principal); M19.90 Unspecified osteoarthritis, unspecified site; E11.9 Type 2 diabetes mellitus without complications; K21.9 Gastro-esophageal reflux disease without esophagitis; I73.00 Raynaud's syndrome without gangrene; K74.60 Unspecified cirrhosis of liver
CPT/HCPCS: 99213; G0463

== ENCOUNTER 2022-02-28 13:42 | Outpatient (CLI) | payer MEDICARE, MEDICAID, SELFPAY ==
--- NOTE | ~2022-02-28 | DEXA_ITS ---
Bone Density Report Name: JUAN CARLOS ROBERTS Age: 67 Sex: Female Ethnicity: White Date of : 1955 Indication: postmenopausal; screening for osteoporosis; Referring Provider: NITZA, LUTHER Vazquez Study: Bone densitometry was performed. Exam Date: February 28, 2022 Accession number: [id number] Bone Density: Region BMD T-score Z-score Classification AP Spine(L1-L4) 1.091 0.4 2.2 Normal Femoral Neck (Left) 0.638 -1.9 -0.4 Osteopenia Total Hip (Left) 0.751 -1.6 -0.3 Osteopenia Femoral Neck (Right) 0.644 -1.8 -0.3 Osteopenia Total Hip (Right) 0.812 -1.1 0.2 Osteopenia Total Hip Mean 0.781 -1.4 -0.1 Osteopenia World Health Organization criteria for BMD impression classify patients as: Normal (T-score at or above -1.0), Osteopenia (T-score between -1.0 and -2.5), or Osteoporosis (T-score at or below -2.5). 10-year Fracture Risk(1): Major Osteoporotic Fracture 9.5% Hip Fracture 1.2% Reported Risk Factors: [place] (), Neck BMD=0.638, BMI=31.4 (1) FRAX(R) Version 3.08. Fracture probability calculated for an untreated patient. Fracture probability may be lower if the patient has received treatment. Clinical Information Provided by Patient: Has used the following medications: Fosamax (i.e. alendronate), Multivitamin Patient maximum height was 60 Menopause Age: 52 No regular weight bearing exercise Onset of menses at age 15 Number of children 1 Impression: The patient has low bone mass, based on the Left Femoral Neck T-score. The patient has an estimated ten-year risk of hip fracture of 1.2% and an estimated ten-year risk of major fracture of 9.5%, based on the WHO FRAX algorithm. Discussion: BONE DENSITY IS LOW AT ONE OR MORE SKELETAL SITES. This patient's lowest T-score is low at one or more skeletal sites. It meets the World Health Organization's (WHO) criteria for ?low bone mass? (T-score between -1.0 and -2.5). The patient's 10-year risk of fracture as calculated by FRAX is less than the threshold where pharmacological therapy is recommended by the National Osteoporosis Foundation (NOF). However, all treatment decisions require clinical judgment and consideration of individual patient factors, including patient preferences, comorbidities, previous drug use, risk factors not captured in the FRAX model (e.g., frailty, falls, vitamin D deficiency, increased bone turnover, interval significant decline in bone density) and possible under or overestimation of fracture risk by FRAX. The patient should follow a healthful lifestyle (good nutrition with adequate calcium and vitamin D, and appropriate weight-bearing exercise). Follow-Up: Consider repeating this study in 2 to 3 years to reassess this patient's status, or sooner if there is some new clinical indication. Reported by: Sapna
== END 2022-02-28 13:43 | disposition home or self-care (01) ==
LOC: ANHIMG 13:44
PROVIDERS: PCP Family Medicine; Visit Provider Nurse Practitioner
DX: Z78.0 Asymptomatic menopausal state (principal); N63.10 Unspecified lump in the right breast, unspecified quadrant; M85.852 Other specified disorders of bone density and structure, left thigh; M85.851 Other specified disorders of bone density and structure, right thigh
CPT/HCPCS: 77080

== ENCOUNTER 2022-05-01 15:17 | Outpatient (CLI) | payer MEDICARE, MEDICAID, SELFPAY ==
[2022-05-01 15:52] LABS: Basophils Percent Auto 0.6 % (0.2-1.2); Eosinophils Absolute Auto 0.1 K/mm3 (0-0.3); Hematocrit 39.7 % (37.0-47.0); Hemoglobin 13.7 g/dL (12.0-15.0); Immature Granulocyte Absolute 0.01 K/mm3 (0.00-0.031); Immature Granulocyte Percent A 0.2 % (0-0.5); Lymphocytes Absolute Auto 1.17 K/mm3 (0.9-3.2); Lymphocytes Percent Auto 18.1 % (18.3-44.2); Mean Corpuscular HGB Conc 34.5 g/dl (32-36); Mean Corpuscular Hemoglobin 33.6 pg (26-34); Mean Corpuscular Volume 97.3 fl (80-100); Mean Platelet Volume 8.9 fl (7.4-10.4); Monocytes Absolute Auto 0.6 K/mm3 (0.1-0.6); Monocytes Percent Auto 9.6 % (2.6-8.5); Neutrophils Absolute Auto 4.5 K/mm3 (1.3-6.7); Neutrophils Percent Auto 69.5 % (45.5-73.1); Platelet Count Result 288 k/mm3 (150-375); Red Blood Count 4.08 M/mm3 (4.2-5.4); Red Cell Distribution Width 12.3 % (11.5-14.5); White Blood Count 6.5 K/mm3 (4.5-10.0)
[2022-05-01 16:07] LABS: Alanine Aminotransferase 25 U/L (6-35); Albumin Level 4.7 g/dL (3.5-5.1); Alkaline Phosphatase 133 U/L (38-126); Anion Gap 7 mmol/L (8-16); Aspartate Amino Transferase 28 U/L (14-36); Bilirubin,Total 0.4 mg/dL (0.2-1.3); Blood Urea Nitrogen 15 mg/dL (7-17); CRP 1.1 mg/dL (<1.0); Calcium 9.4 mg/dL (8.4-10.2); Carbon Dioxide 28 mmol/L (22-30); Chloride 94 mmol/L (98-107); Estimated Glomerular Filt Rate > 60; Glucose 94 mg/dL (65-110); Sodium 129 mmol/L (137-145)
[2022-05-01 16:17] LABS: Potassium 5.2 mmol/L (3.4-5.0)
[2022-05-01 18:01] LABS: Erythrocyte Sedimentation Rate 14 mm/hr (0-20)
== END 2022-05-01 15:18 | disposition home or self-care (01) ==
PROVIDERS: PCP Family Medicine
DX: I73.00 Raynaud's syndrome without gangrene (principal)
CPT/HCPCS: 36415; 80053; 85025; 85652; 86038; 86140

== ENCOUNTER 2022-11-06 12:30 | Outpatient (RCR) | payer MEDICARE, SELFPAY ==
--- NOTE | 2022-10-09 11:49 | OPREHPOC ---
Outpatient Therapy Plan of Care This is a Multidisciplinary Plan of Care that may contain components documented by all disciplines (PT, OT, and ST.) PT Problem 1 PT Problem #1 Knowledge Deficit PT Goal 1 Goal Independent with HEP Target Visit 6 PT Problem 2 PT Problem #2 Pain PT Goal 1 Goal decrease pain to 5/10 pain at worst. Target Visit 6 PT Problem 3 PT Problem #3 Impaired Strength PT Goal 1 Goal able to do 20 seated pelvic tilts to work on improving and keeping improved posture. Target Visit 6
--- NOTE | 2022-10-09 11:49 | PTOPEVAL1 ---
Assessment and note entered by Caesar Joshi, PT Evaluation Information Assessment Status Evaluation Diagnosis Spondylosis, thoracic region Onset Chronic Subjective Information Patient reports she is coming back to the clinic to work on loosening up her arthritic mid back. She reports coming multiple other times for the same issue. Does not consistently do her prior assigned HEP's. Does have a TENS unit which the new electrodes are not sticking. Also using Ultram, Tylenol, and Voltaren gel. Has previously gotten injections on her back. Besides the mid back pain has a history of bulging discs in the lumbar region. Reported Pain Level Pain Score 3: Self Report Additional Pain Score Comments Reports feeling a little bit better than usual Assessment PT Clinical Summary Luz Maria is a 67 year old female coming into the clinic with a diagnosis of Spondylosis in the thoracic region. Patient has discomfort going through full range of motion and poor to fair posture. Physical therapy will work on stretching exercises, education on posture and core stability ot take stress off the thoracic region. Manual and modalities as needed for pain. Plan of Care Interventions Electrical Stimulation,Gait Training,Hot Pack/Cold Pack,Manual Therapy,Neuro Re-education,Patient/ Caregiver Education,Therapeutic Activities, Therapeutic Exercise,Ultrasound Other Interventions cupping, taping, IASTM PT Services Indicated Yes Treatment Frequency and 1-2x/wk for 4 weeks Duration These treatments will address the objective and functional deficits as defined above. The patient will be advanced safely and appropriately in order for the patient to progress towards his/her prior level of function. Additional exercises will be introduced and as well as a comprehensive home exercise program upon discharge, if needed, ?to ensure carryover of functional gains achieved in the clinic. This treatment plan has been reviewed and agreement upon by the patient.
--- NOTE | 2022-10-30 07:26 | PCPTNOTE ---
Pt. canceled 10/30/22 just noting that she would not be able to make it today.
--- NOTE | 2022-11-06 12:55 | PTOPDC ---
Assessment and note entered by Caesar Joshi, PT Evaluation Information Assessment Status Discharge Diagnosis Spondylosis, thoracic region Onset Chronic Subjective Information Patient reports all in all her spine is better. She states she has been doing her exercises and that they do help. Reports she does not think the spine will ever be completely better, because she does have a bunch of other comorbidities that affect it. Reported Pain Level Pain Score 3: Self Report Assessment PT Clinical Summary Luz Maria is a 67 year old female coming into the clinic with a diagnosis of thoracic region spondylosis. Patient was evaluated on October 09, 2022 and has attended 4 sessions. The patient has not met her pain goal, but has met the other goals. Patient okay with being discharged with her HEP Plan of Care PT Services Indicated No
== END 2022-11-06 15:13 | disposition home or self-care (01) ==
LOC: ANHPT 12:30
PROVIDERS: PCP Family Medicine; Visit Provider Nurse Practitioner Adult Health
DX: M47.894 Other spondylosis, thoracic region (principal)
CPT/HCPCS: 97110; 97161; 97530